=== PATIENT | male | born 2000 | race Caucasian/White ===

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

== ENCOUNTER 2020-08-26 11:07 | Emergency (ER) | payer BC, OTHER ==
[~2020-08-26] VITALS: Ht 172.7 cm; Wt 63.7 kg
[2020-08-26] MEDS ORDERED: IV NORMAL SALINE 1,000ML 1,000 ML IV ONE (11:45)
[2020-08-26] MEDS ORDERED: ONDANSETRON PF 4 MG/2 ML VIAL. IVP ONE (11:45)
[2020-08-26] MEDS ORDERED: INSULIN REGULAR 100 UNIT/ML 3ML VIAL. SQ ONE (11:45)
[2020-08-26] MEDS ORDERED: FAMOTIDINE 20 MG/2 ML VIAL IVP ONE (11:45)
[2020-08-26 12:06] LABS: BASO # 0.1 x10^3/uL (0.0-0.2); BASO % 1 % (0-3); EOS % 0 % (0-3); HEMATOCRIT 56.3 % (39.0-53.0); LYMPH # 1.1 x10^3/uL (1.0-4.8); LYMPH % 5 % (24-48); MEAN CORPUSCULAR HEMOGLOBIN 31 pg (25-35); MEAN CORPUSCULAR HGB CONC 32 g/dL (31-37); MEAN CORPUSCULAR VOLUME 97 fL (79-100); MONO # 1.1 x10^3/uL (0.0-1.1); MONO % 5 % (0-9); NEUT # 18.8 x10^3uL (1.8-7.7); NEUT % 89 % (31-73); PLATELET COUNT 354 x10^3/uL (140-400); RED BLOOD COUNT 5.82 x10^6/uL (4.30-5.70); RED CELL DISTRIBUTION WIDTH 14.5 % (11.5-14.5); WHITE BLOOD COUNT 21.1 x10^3/uL (4.0-11.0)
[2020-08-26] MEDS ORDERED: IV DEXTROSE 5 %-0.45 % NACL 1,000 ML IV SCH (12:30)
[2020-08-26] MEDS ORDERED: IV NORMAL SALINE 1,000ML 1,000 ML IV SCH (12:30)
[2020-08-26] MEDS ORDERED: INSULIN REGULAR VIAL 100 UNIT in IV NORMAL SALINE 100ML 100 ML IV PRN (12:30)
[2020-08-26 12:52] LABS: BILIRUBIN,URINE NEG (NEG); CLARITY,URINE CLEAR; COLOR,URINE YELLOW; GLUCOSE,URINE 500 mg/dL (NEG); NITRITE,URINE NEG (NEG); UROBILINOGEN,URINE 0.2 mg/dL (0.2 mg/dL)
[2020-08-26 12:53] LABS: BACTERIA,URINE FEW /HPF (0-FEW); WBC,URINE 0 /HPF (0-4)
[2020-08-26 13:01] LABS: % BANDS 7 % (0-9); % LYMPHS 6 % (24-48); % METAS 1 % (0-0); % MONOS 8 % (0-10); % SEGS 78 % (35-66); PLT ESTIMATE ADEQUATE (ADEQUATE)
[2020-08-26 13:52] LABS: POTASSIUM ISTAT 5.9 mmol/L (3.5-5.0)
--- NOTE | 2020-08-26 14:16 | PHYS DOC ---
Past History Past Medical History: Diabetes Past Surgical History: No Surgical History Smoking: Non-smoker Alcohol Use: None Drug Use: None Social History Patient lives with a roommate. Patient exercises a lot. General Adult EDM: Chief Complaint: HYPERGLYCEMIA HPI: HPI: 19-year-old male presents to the emergency department for hyperglycemia. Patient was driven to the ED by mother. Patient was lethargic and not r esponding to questioning. Mother answered questions. Claims that patient was vomiting starting last night and through the night and was alerted by roommate of this. Mother had last seen patient at 6 PM last night and claimed that he was normal self, so believes this must of happen later in the night. Mother claims that patient had episode of DKA 2 years ago after not taking insulin medication and that this is very similar. Patient has history of diabetes. Patient was lying in bed and breathing very rapidly upon examination. Review of Systems: Review of Systems: Constitutional: Lethargic, denies fever chills Eyes: Denies redness or eye pain HENT: Denies nasal congestion or sore throat Respiratory: Rapid respiration, no coughing, shortness of breath Cardiovascular: Denies chest pain or palpitations GI: Denies abdominal pain, nausea, or vomiting : Denies dysuria or hematuria Musculoskeletal: Denies back pain or joint pain Integument: Denies rash or skin lesions Neurologic: Denies headache, focal weakness or sensory changes Complete systems were reviewed and found to be within normal limits, except as documented in this note. Family History: Family History: No relevant family history Current Medications: Current Meds: Tresiba, Humalog, atorvastatin Current Medications Medications (Trade) Dose Ordered Sig/Aamir Start Time Stop Time Status Last Admin Dose Admin Dextrose/Sodium Chloride 1,000 ml @ 0 mls/hr Q0M 08/26/20 12:30 Famotidine (Pepcid Vial) 20 mg 1X ONCE 08/26/20 11:45 08/26/20 11:46 DC 08/26/20 11:48 20 MG Insulin Human Regular (HumuLIN R VIAL) 14 unit 1X ONCE 08/26/20 11:45 08/26/20 11:56 DC 08/26/20 11:51 14 UNIT Insulin Human Regular 100 unit/ Sodium Chloride 101 ml @ 0 mls/hr CONT PRN PRN 08/26/20 12:30 08/26/20 13:12 9.5 MLS/HR Lorazepam (Ativan Inj) 0.5 mg 1X ONCE 08/26/20 13:45 08/26/20 13:46 DC 08/26/20 13:39 0.5 MG Ondansetron HCl (Zofran) 4 mg 1X ONCE 08/26/20 11:45 08/26/20 11:46 DC 08/26/20 11:47 4 MG Sodium Chloride 1,000 ml @ 0 mls/hr Q0M 08/26/20 12:30 Allergies: Allergies: Allergies Coded Allergies Type Severity Reaction Last Updated Verified No Known Drug Allergies 08/26/20 No Physical Exam: PE: Constitutional: Lethargic, no acute distress HENT: Dry oral mucosa, ketone scented breath, normocephalic, atraumatic Eyes: conjunctiva normal, no discharge Neck: Normal range of motion, no tenderness, supple Lungs & Thorax: Rapid respiratory rate, no paradoxical breathing, no intercostal retractions Abdomen: Soft, no tenderness Skin: Warm, dry, no erythema, no rash Back: No tenderness, no CVA tenderness Extremities: No tenderness, ROM intact, no edema Neurologic: normal motor function, normal sensory function, no focal deficits noted Psychologic: Lethargic, judgment normal Current Patient Data: Labs: Laboratory Tests Test 08/26/20 11:14 08/26/20 11:32 08/26/20 11:52 08/26/20 12:26 Glucose (Fingerstick) 537 mg/dL (70-99) *H White Blood Count 21.1 x10^3/uL (4.0-11.0) H Red Blood Count 5.82 x10^6/uL (4.30-5.70) H Hemoglobin 18.0 g/dL (13.0-17.5) H Hematocrit 56.3 % (39.0-53.0) H Mean Corpuscular Volume 97 fL (79-100) Mean Corpuscular Hemoglobin 31 pg (25-35) Mean Corpuscular Hemoglobin Concent 32 g/dL (31-37) Red Cell Distribution Width 14.5 % (11.5-14.5) Platelet Count 354 x10^3/uL (140-400) Neutrophils (%) (Auto) 89 % (31-73) H Lymphocytes (%) (Auto) 5 % (24-48) L Monocytes (%) (Auto) 5 % (0-9) Eosinophils (%) (Auto) 0 % (0-3) Basophils (%) (Auto) 1 % (0-3) Neutrophils # (Auto) 18.8 x10^3uL (1.8-7.7) H Lymphocytes # (Auto) 1.1 x10^3/uL (1.0-4.8) Monocytes # (Auto) 1.1 x10^3/uL (0.0-1.1) Eosinophils # (Auto) 0.0 x10^3/uL (0.0-0.7) Basophils # (Auto) 0.1 x10^3/uL (0.0-0.2) Segmented Neutrophils % 78 % (35-66) H Band Neutrophils % 7 % (0-9) Lymphocytes % 6 % (24-48) L Monocytes % 8 % (0-10) Metamyelocytes % 1 % (0-0) H Platelet Estimate Adequate (ADEQUATE) Urine Collection Type Void Urine Color Yellow Urine Clarity Clear Urine pH 5.5 Urine Specific [place] 1.025 Urine Protein 30 mg/dl (NEG-TRACE) Urine Glucose (UA) 500 mg/dL (NEG) Urine Ketones (Stick) >=160 mg/dL (NEG) Urine Blood Small (NEG) Urine Nitrite Neg (NEG) Urine Bilirubin Neg (NEG) Urine Urobilinogen Dipstick 0.2 mg/dL (0.2 mg/dL) Urine Leukocyte Esterase Neg (NEG) Urine RBC 1-2 /HPF (0-2) Urine WBC 0 /HPF (0-4) Urine Bacteria Few /HPF (0-FEW) POC Venous pH 6.97 (7.32-7.42) L POC Venous pCO2 18 mmHg (41-51) L POC Venous pO2 91 mmHg (20-40) H Venous Blood HCO3 4 mmol/L (24-28) L POC Venous O2 Saturation (Brooke) 92 % POC FiO2 21 Vital Signs: Vital Signs Date Time Temp Pulse Resp B/P (MAP) Pulse Ox O2 Delivery O2 Flow Rate FiO2 08/26/20 13:42 152 36 154/89 (110) 97 Room Air 08/26/20 11:19 97.9 EKG: EKG: [] Radiology/Procedures: Radiology/Procedures: [] Heart Score: C/O Chest Pain: N/A Course & Med Decision Making: Course & Med Decision Making Pertinent Lab studies reviewed. (See chart for details) Patient requiring admission for further evaluation and treatment. Discussed with Dr. Maldonado (hospitalist) who is in agreement with admission. Discussed findings and plan with patient and his mother, who acknowledge understanding and agreement. While in the emergency department patient continued to be given IV fluids and insulin labs. Plan is to send to the ICU. Mother insists on transfer to [place] ICU. Planning to transfer to [place] ICU. Dragon Disclaimer: Dragon Disclaimer: This electronic medical record was generated, in whole or in part, using a voice recognition dictation system. Departure Departure: Impression: Primary Impression: DKA (diabetic ketoacidosis) Qualified Codes: E10.10 - Type 1 diabetes mellitus with ketoacidosis without coma Disposition: 02 DC/TRF OTHER SHORT TERM HOS ([facility]- Dr. Maldonado accepting) Admitting Physician: Gia Maldonado Condition: GUARDED Referrals: TATA NAPOLES MD (PCP) Critical Care Time Critical care time was 30 minutes which includes time at bedside, spent in discussion of patient's care with specialists and/or family members, with interpretation of laboratory and/or radiological studies and is exclusive of procedures. LEAH HA DO Aug 26, 2020 14:16
[2020-08-26] MEDS ORDERED: ONDANSETRON PF 4 MG/2 ML VIAL. IVP PRN (14:30)
[2020-08-26 16:51] VITALS: BP 115/68
[2020-08-26 17:25] LABS: ALBUMIN 4.8 g/dL (3.4-5.0); CALCIUM 7.9 mg/dL (8.5-10.1); MAGNESIUM 2.3 mg/dL (1.8-2.4); TOTAL BILIRUBIN 0.5 mg/dL (0.2-1.0); TOTAL PROTEIN 8.2 g/dL (6.4-8.2)
== END 2020-08-26 17:11 | disposition short-term general hospital (02) ==
LOC: ER 11:07
DX: E10.10 Type 1 diabetes mellitus with ketoacidosis without coma (principal)
CPT/HCPCS: 36415; 80047; 81001; 82010; 82040; 82247; 82310; 82803; 82947; 83690; 83735; 84075; 84155; 84450; 84460; 85007; 85025; 96361; 96365; 96366; 96372; 96375; 99291; J1815; J2060; J2405; J3490; J7030

== ENCOUNTER → 2020-09-04 | Outpatient (CLI) | payer BC ==
[2020-08-26 16:51] VITALS: BP 115/68
--- NOTE | 2020-09-04 10:51 | RAD ---
INDICATION: Reason: RT ARM PAIN AND SWELLING / Spl. Instructions: / History: COMPARISON: None. TECHNIQUE: Grayscale, color and doppler ultrasound images were obtained of the right upper extremity venous vasculature. RIGHT: No thrombus identified in the internal jugular, subclavian, axillary, brachial, basilic, radial or u lnar veins. Thrombus within the cephalic vein is seen within the forearm IMPRESSION: 1. Superficial venous thrombosis of the cephalic vein without extension into deep veins. Electronically signed by: Lane Ko MD (09/04/2020 10:48 AM) [id number]
== END ==
LOC: US 09:17
PROVIDERS: ATTEND Family Medicine
DX: I82.611 Acute embolism and thrombosis of superficial veins of right upper extremity (principal)
CPT/HCPCS: 93971